=== PATIENT | female | born 1955 | race Caucasian/White ===

== ENCOUNTER 2024-04-24 08:22 | Outpatient (AMB) | payer OTHER, SELFPAY ==
--- NOTE | 2024-04-24 09:31 | MHC.OFFWIV ---
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 States that she was walking around her car, and tripped on the trailer hitch, which caused her to fall forward. She was able to catch herself on her left arm, however has since had pain and swelling along left forearm. Able to move elbow and wrist without pain. Denies any other injuries from fall. Has applied some topical muscle cream at home with some mild benefit. [facility] Social History Patient Tobacco Use Status: Never used Tobacco Review of Systems Const All systems reviewed & are unremarkable except as noted in HPI and below Physical Exam Vital Signs: Last Vital Signs Temp 97.9 F 04/24/24 09:32 Pulse 60 04/24/24 09:32 BP 130/80 04/24/24 09:32 Pulse Ox 98 04/24/24 09:32 Oxygen Delivery Method Room Air 04/24/24 09:32 BMI result Body Mass Index 30.4 Const General: cooperative, healthy appearing and no acute distress HEENT Head: Yes normal to inspection Resp Effort & Inspection: normal respiratory effort Cardio Rate: regular rate Rhythm: regular rhythm Skin General skin exam: no rashes or lesions noted Neuro General: gait normal and deep tendon reflexes 2+ bilaterally Extrem Other: left forearm with mild swelling and tenderness over mid-shaft. Normal elbow and wrist ROM. Normal cap refill, peripheral pulses, movement/sensation. No edema. Psych Appearance: grossly normal Mental Status: mental status grossly normal Speech and movement: Normal speech and movement present Assessment & Plan Assessment & Plan (1) Status post fall: Code(s): Z91.81 - History of falling Plan: XR of left forearm done in the office today and appears normal w/o fracture or disclocation. Reviewed this with patient in the office. Advised conservative measures for injury, including NSAIDs, ice, compression. JASEN wrap applied in the office. Short course of Meloxicam prescribed. Reviewed with patient indications, use, possible side effects of medication. Provided her with some ice packs. Advised her to elevate arm intermittently throughout the day. If symptoms do not improve with time and conservative measures, or certainly if symptoms worsen/new symptoms develop, she can return to the clinic for further evaluation. She verbalizes understanding and agrees to plan. (2) Left forearm pain: Code(s): M79.632 - Pain in left forearm Plan: As above. Orders: Orders XR forearm LT 2V Today M79.632 - Pain in left forearm, Z91.81 - History of falling Medications: New meloxicam 15 mg PO DAILY 7 days 7 tabs 0RF M79.632 - Pain in left forearm, Z91.81 - History of falling Coding Level of Care Code Est Pt Level 4 (95439) Diagnoses Status post fall Z91.81 Left forearm pain M79.632
[2024-04-24 09:32] VITALS: BP 130/80; PULSE 60; TEMP 36.6; O2SAT 98; BMI 30.4
== END 2024-04-24 10:33 | disposition home or self-care (01) ==
PROVIDERS: PCP Internal Medicine; Visit Provider Nurse Practitioner Family
DX: Z91.81 History of falling (principal); M79.632 Pain in left forearm
CPT/HCPCS: 99214

== ENCOUNTER 2024-04-24 10:12 | Outpatient (REF) | payer OTHER, SELFPAY ==
--- NOTE | ~2024-04-24 | XR_ITS ---
EXAMINATION: XR FOREARM, LEFT CLINICAL INFORMATION: Pain in left forearm COMPARISON: None available. TECHNIQUE: AP and lateral views of the left forearm were obtained. FINDINGS: The bones and soft tissues are normal. No fracture. Imaged portions of the elbow and wrist are unremarkable. XR/XR forearm LT 2V IMPRESSION: Normal left forearm.
== END 2024-04-24 10:13 | disposition home or self-care (01) ==
LOC: HO.HMGCX 10:12
PROVIDERS: PCP Internal Medicine; Visit Provider Nurse Practitioner Family
DX: M79.632 Pain in left forearm (principal); Z91.81 History of falling
CPT/HCPCS: 73090

== ENCOUNTER 2025-01-27 08:02 | Outpatient (AMB) | payer OTHER, SELFPAY ==
--- OUTSIDE RECORDS SUMMARY | 2025-01-27 08:06 | XMS_ITS | Clinical Summary ---
Author Organization [facility] [address] [place] [address] [place] [address] [place] [phone] Phone Care Team Providers Care Lip Cutter And Scorer Name Role Phone Yani Tripp MD Primary Care Provider [phone] Allergies Active Allergy Reactions Criticality Noted Date Comments Cat Dander 11/23/2011 Dog Dander 11/23/2011 Mold 11/23/2011 Yeast 11/23/2011 Medications ibuprofen (ADVIL,MOTRIN) 600 mg tablet Take 1 Tablet by mouth every 6 hours as needed for Pain. 03/30/2024 Active hydrOXYzine HCL (ATARAX) 25 mg tabletIndicatio ns:Anxiety and depression,Othe r insomnia Take 0.5-1 tablets (12.5-25 mg total) by mouth 3 (three) times a day. 90 tablet 11/16/2024 Active traZODone (DESYREL) 100 mg tabletIndicatio ns:Anxiety and depression,Othe r insomnia Take 1 tablet (100 mg total) by mouth 3 (three) times a day. 90 tablet 1 11/16/2024 Active citalopram (CeleXA) 20 mg tabletIndicatio ns:Anxiety and depression Take 1 tablet (20 mg total) by mouth 1 (one) time each day. 90 tablet 1 11/16/2024 Active Active Problems Problem Noted Date Diagnosed Date Pre-diabetes 06/20/2020 Vitamin D deficiency 06/20/2020 Hyperlipidemia 06/19/2020 Assessment & Plan (11/17/2024 7:46 AM EST): Last LDL 146. cardiovascular risk and specific lipid/LDL goals reiterated. I will recheck Lipid profile today. If still elevated I will discuss starting a statin. Orders: Lipid panel with reflex to direct LDL; Future Hemoglobin A1c; Future Thyroid stimulating hormone with reflex to free t4 and free t3; Future Obesity (BMI 30-39.9) 05/21/2018 Neck pain 12/28/2016 Mammographic microcalcification 03/04/2014 Allergic rhinitis 11/23/2011 Cough 11/23/2011 Hernia, umbilical 08/15/2010 Anxiety and depression 05/11/2009 Assessment & Plan (11/18/2024 6:47 PM EST): Patient does wish to continue pharmacological treatment for depressive mood and anxiety at this time. I will Continue antidepressant, Celexa 20 mg daily and hydroxyzine 12.5-25 mg 3 times daily as needed. I discussed the adverse effects of this medication with the patient including sexual dysfunction and suicidal ideation. Patient understands the adverse effects. Patient is on 3 medications that can possibly prolong Qtc (hydroxyzine, trazodone and Celexa). No EKG on file. I order EKG to check QTc today. QTC was not prolong. Therefore, I will continue current medication. EKG also reviewed with PCP. At this point, suicidal ideation does not appear to be a concern, therefore hospitalization will not be necessary and this patient may be treated on an outpatient basis. The patient was instructed to call immediately should the patient experience thoughts of suicide. Patient was advised to call immediately should depression symptoms worsen or should the patient experience suicidal ideation. Patient was asked to follow up in 2 month to gauge response to medications for depression. Orders: hydrOXYzine HCL (ATARAX) 25 mg tablet; Take 0.5-1 tablets (12.5-25 mg total) by mouth 3 (three) times a day. traZODone (DESYREL) 100 mg tablet; Take 1 tablet (100 mg total) by mouth 3 (three) times a day. citalopram (CeleXA) 20 mg tablet; Take 1 tablet (20 mg total) by mouth 1 (one) time each day. Thyroid stimulating hormone with reflex to free t4 and free t3; Future ECG 12 lead; Future Insomnia 10/22/2008 Assessment & Plan (11/17/2024 7:46 AM EST): Patient has difficulty with staying asleep. She has been taking trazodone which she reports is somewhat helpful. Patient is to continue trazodone 100 mg, at bedtime Orders: hydrOXYzine HCL (ATARAX) 25 mg tablet; Take 0.5-1 tablets (12.5-25 mg total) by mouth 3 (three) times a day. traZODone (DESYREL) 100 mg tablet; Take 1 tablet (100 mg total) by mouth 3 (three) times a day. Thyroid stimulating hormone with reflex to free t4 and free t3; Future Migraine without aura 10/03/2006 Overview (10/28/2024): IMO update Encounters Date Type Department Care Team Description 11/20/2024 2:20 PM EST - 11/20/2024 11:59 PM EST Hospital Encounter Radiology Department - [address] [phone] Abnormal mammogram Discharge Disposition: Home or Self Care 11/18/2024 8:17 AM EST - 11/18/2024 11:59 PM EST Hospital Encounter Radiology Department - [address] [phone] Encounter for screening mammogram for breast cancer Discharge Disposition: Home or Self Care 11/18/2024 Telephone Adult Medicine [address] [phone] Yani Tripp MD 11/16/2024 3:00 PM EST Office Visit Adult Medicine [address] [phone] Rosana Blanton NP Anxiety and depression (Primary Dx); Other insomnia; Prediabetes; Pure hypercholesterolemia; Encounter for screening for cardiovascular disorders; Screening for malignant neoplasm of colon; Need for tetanus, diphtheria, and acellular pertussis (Tdap) vaccine from Last 3 Months Immunizations Name Administration Dates Next Due Tdap Tetanus diptheria acell ular pertussis (Boostrix; Adacel) 7yo and older 11/16/2024,02/21/2007 Surgical History Surgery Date Site/Laterality Comments OTHER SURGICAL HISTORY PROCEDURE: CT LIG/TRNSXJ FLP TUBE ABDL/VAG APPR UNI/BI BREAST BIOPSY 2006, 2013 Left PROCEDURE: BX BREAST; PERC NEEDLE CORE W/IMAG GUID; COMMENT: x2 bx neg Medical History Medical History Date Comments Headache(784.0) DX:Headache(784. 0) Depression 05/11/2009 DX:Depression Obesity (BMI 30-39.9) 05/21/2018 DX:Obesity (BMI 30-39.9) Pre-diabetes DX:Pre-diabetes Hyperlipidemia DX:Hyperlipidemi a Anxiety DX:Anxiety Family History Medical History Relation Name Comments Diabetes Brother Diabetes Father Other: PVD Father Other: arthritis Father Diabetes Mother Hypertension Mother stroke living Other: GERD Mother Breast cancer Neg Hx Relation Name Status Comments Brother Father Mother Social History Tobacco Use Types Packs/Day Years Used Date Smoking Tobacco: Never Smokeless Tobacco: Never Tobacco Cessation:Counseling Given: Not Answered Alcohol Use Standard Drinks/Week Comments Yes 0 (1 standard drink = 0.6 oz pur e alcohol) Comments No Sex and Gender Information Value Date Recorded Sex Assigned at Not on file Legal Sex Female 10:41 AM EST Gender Identity Not on file Sexual Orientation Not on file Obstetrics History Para Term AB IAB SAB Ectopic Multiple Livin g Live Births 2 2 2 2 Date Outcome GA Total Labor Labor/2nd/3rd Weight Sex Type Anes PTL Ketty A1 A5 Name Clin Term Term Last Filed Vital Signs Vital Sign Reading Time Taken Comments Blood Pressure 138/63 11/16/2024 2:51 PM EST Pulse 63 11/16/2024 2:51 PM EST Temperature 36.9 ??C (98.5 ??F) 11/16/2024 2:51 PM ES T Respiratory Rate 16 11/16/2024 2:51 PM EST Oxygen Saturation - - Inhaled Oxygen Concentration - - Weight 92.5 kg (204 lb) 11/16/2024 2:51 PM EST Height 170.2 cm (5' 7 ) 11/16/2024 2:51 PM EST Body Mass Index 31.95 11/16/2024 2:51 PM EST Plan of Treatment Upcoming Encounters Date Type Department Care Team (Late st Contact Info) Description 05/06/2025 9:20 AM EDT Appointment Radiology Department [address] [phone] 05/31/2025 1:00 PM EDT Office Visit Adult Medicine [facility] [place] [address] [phone] Yani Tripp MD [address], [place] Health Maintenance Due Date Last Done Comments Colorectal Cancer Screening: Stool Based Tests (FOBT/FIT) 09/29/2022 Social Influencers of Health Screening 09/29/2022 Depression Screening 11/16/2025 11/16/2024 Falls Risk Assessment 11/16/2025 11/16/2024 Breast Cancer Screening 11/20/2026 11/20/19, 11/18/2024, 11/11/2023, Additional history exists RSV Immunization Adult Patients (1 - 1-dose 75+ series) 2028 Cholesterol Screening (Lipid Panel) 11/18/2029 11/18/2024, 01/10/2023 Osteoporosis Screening (Bone Density Screening) 01/26/2032 01/25/2022 DTaP,Tdap,and Td Vaccines (3 - Td or Tdap) 11/16/2034 11/16/2024, 02/21/2007 Hepatitis C Screening Completed 01/16/2019 COVID-19 Vaccine Discontinued 02/07/2021, 01/15/2021 HIB Vaccines Aged Out No longer eligi ble based on patient's age to complete this topic HPV Vaccines Aged Out No longer eligi ble based on patient's age to complete this topic Hepatitis A Vaccines Aged Out No long er eligible based on patient's age to complete this topic Hepatitis B Vaccines Aged Out No long er eligible based on patient's age to complete this topic IPV Vaccines Aged Out No longer eligi ble based on patient's age to complete this topic Influenza Vaccine Discontinued MMR Vaccines Aged Out No longer eligi ble based on patient's age to complete this topic Meningococcal ACWY Vaccine Aged Out N o longer eligible based on patient's age to complete this topic Meningococcal B Vaccine Aged Out No l onger eligible based on patient's age to complete this topic Pneumococcal Vaccine: 50+ Years Discontinued RSV Immunization Patients Under 20 months Aged Out No longer eligible based on patient's age to complete this topic Varicella Vaccines Aged Out No longer eligible based on patient's age to complete this topic Zoster Vaccines Discontinued Procedures Procedure Name Priority Date/Time Associated Diagnosis Comments MG MAMMO DIAGNOSTIC ADDL VIEWS LEFT Routine 11/20/2024 2:33 PM EST Abnormal mammogram LIPID PANEL WITH REFLEX TO DIRECT LDL Routine 11/18/2024 8:35 AM EST Prediabetes Pure hypercholesterolemia Encounter for screening for cardiovascular disorders BASIC METABOLIC PANEL Routine 11/18/2024 8:35 AM EST Prediabetes HEMOGLOBIN A1C Routine 11/18/2024 8:35 AM EST Prediabetes Pure hypercholesterolemia Encounter for screening for cardiovascular disorders THYROID STIMULATING HORMONE WITH REFLEX TO FREE T4 AND FREE T3 Routine 11/18/2024 8:35 AM EST Anxiety and depression Other insomnia Prediabetes Pure hypercholesterolemia Encounter for screening for cardiovascular disorders MG MAMMO DIGITAL SCREENING W DEONTE BILAT Routine 11/18/2024 8:29 AM EST Encounter for screening mammogram for breast cancer DXA BONE DENSITY STUDY 1+ SITS AXIAL SKEL Routine 01/25/2022 10:04 AM EDT Encounter for general adult medical examination without abnormal findings HEPATITIS C SCREENING Routine 01/16/2019 from Last 3 Months or Most Recently Relevant to Health Maintenance Results * MG Mammo Diagnostic Addl Views Left (11/20/2024 2:33 PM EST) Anatomical Region Laterality Modality Breast Left Mammography 11/20/2024 2:40 PM EST Impressions 11/20/2024 2:48 PM EST Probably benign. ??Magnification views of the right breast in 6 months are recommended and have been scheduled.. ? BI-RADS CATEGORY: 3 - PROBABLY BENIGN RECOMMENDATION: Short Interval Follow-up is recommended for the left breast in 6 months. Mammo Location: [facility], [address] [place] [address], [id number], . -------- FINAL REPORT -------- Dictated By: Tegan Gutierrez Dictated Date: 11/20/2024 14:40 ET Assigned Physician: Tegan Gutierrez Reviewed and Electronically Signed By: Tegan Guiterrez Signed Date: 11/20/2024 14:48 ET Workstation ID: [id number] Transcribed By: Self Edit Transcribed Date: 11/20/2024 14:40 ET Narrative 11/20/2024 2:48 PM EST CLINICAL: 69 years old, Female, calcifications upper outer left breast on screening mammogram of 11/11/2023. COMPARISON: Mammograms dating back to 10/30/2021 with most recent 11/11/2023. ?? FINDINGS: MAMMOGRAPHY TECHNIQUE: Magnification views of the left breast in the CC, MLO and ML projections are obtained. There is a cluster of probably benign microcalcifications in the upper outer left breast. ??There are other similar-appearing calcifications in both breasts. BREAST DENSITY: B - There are scattered areas of fibroglandular density. Procedure Note Tegan Gutierrez MD - 11/20/2024 CLINICAL: 69 years old, Female, calcifications upper outer left breast onscreening mammogram of 11/11/2023. COMPARISON: Mammograms dating back to 10/30/2021 with most [id number]/11/2023. FINDINGS: MAMMOGRAPHY TECHNIQUE: Magnification views of the left breast in the CC, MLO and MLprojections are obtained. There is a cluster of probably benign microcalcifications in the upperouter left breast. There are other similar-appearing calcifications inboth breasts. BREAST DENSITY: B - There are scattered areas of fibroglandular density. IMPRESSION: Probably benign. Magnification views of the right breast in 6 months arerecommended and have been scheduled.. BI-RADS CATEGORY: 3 - PROBABLY BENIGN RECOMMENDATION: Short Interval Follow-up is recommended for the left breast in 6 months. Mammo Location: [facility], [address] [place] [address], [address], . -------- FINAL REPORT -------- Dictated By: Tegan Gutierrez Dictated Date: 11/20/2024 14:40 ET Assigned Physician: Tegan Gutierrez Reviewed and Electronically Signed By: Tegan Gutierrez Signed Date: 11/20/2024 14:48 ET Workstation ID: [id number] Transcribed By: Self Edit Transcribed Date: 11/20/2024 14:40 ET us Yani Tripp MD IMG BI PROCEDURES Final Result * Thyroid stimulating hormone with reflex to free t4 and free t3 (11/18/2024 8:35 AM EST) TSH 4.00 0.40 - 4.00 mcIU/mL LAB CHEMISTRY METHOD 11/18/2024 11:24 AM EST [facility] Blood Venous blood specimen / Unknown Venipuncture / Unknown 11/18/2024 8:35 AM EST 11/18/2024 8:35 AM EST Rosana Blanton TRUSS DESIGNER LAB BLOOD ORDERABLES Final R esult [facility] [address] [place] [address], * (ABNORMAL) Lipid panel with reflex to direct LDL (11/18/2024 8:35 AM EST) Cholesterol 233(H) 0 - 200 mg/dL LAB CHEMISTRY METHOD 11/18/2024 11:25 AM EST [facility] Triglycerides 86 0 - 150 mg/dL LAB CHEMISTRY METHOD 11/18/2024 11:25 AM EST [facility] HDL 65 >=40 mg/dL LAB CHEMISTRY METHOD 11/18/2024 11:25 AM EST [facility] LDL Calculated 151(H) 0 - 100 mg/dL LAB CHEMISTRY METHOD 11/18/2024 11:25 AM EST [facility] VLDL Cholesterol Joss 17.2 mg/dL LAB CHEMISTRY METHOD 11/18/2024 11:25 AM EST [facility] Non HDL Chol. (LDL+VLDL) 168(H) <145 mg/dL LAB CHEMISTRY METHOD 11/18/2024 11:25 AM EST [facility] Chol/HDL Ratio 3.6 0.0 - 4.4 LAB CHEMISTRY METHOD 11/18/2024 11:25 AM EST [facility] Blood Venous blood specimen / Unknown Venipuncture / Unknown 11/18/2024 8:35 AM EST 11/18/2024 8:35 AM EST Rosana Blanton [employer]USS DESIGNER LAB BLOOD ORDERABLES Final R esult Performing Organization Address City/[facility]/ZIP Co de Phone Number [facility] [address] [place] [address], [place] [phone] * Hemoglobin A1c (11/18/2024 8:35 AM EST) Pathologist [facility] Hemoglobin A1C 6.4 <6.5 % LAB CHEMISTRY METHOD 11/18/2024 11:22 AM EST [facility] Mean Bld Glu Estim. 137 mg/dL LAB CHEMISTRY METHOD 11/18/2024 11:22 AM EST [facility] Blood Venous blood specimen / Unknown Venipuncture / Unknown 11/18/2024 8:35 AM EST 11/18/2024 8:35 AM EST Rosana Blanton [employer]USS DESIGNER LAB BLOOD ORDERABLES Final R esult Performing Organization Address City/[facility]/ZIP Co de Phone Number [facility] [address] [place] [address], [place] [phone] * (ABNORMAL) Basic metabolic panel (11/18/2024 8:35 AM EST) Sodium 136 133 - 145 mmol/L LAB CHEMISTRY METHOD 11/18/2024 11:25 AM EST [facility] Potassium 4.5 3.5 - 5.5 mmol/L LAB CHEMISTRY METHOD 11/18/2024 11:25 AM [facility] Chloride 103 96 - 110 mmol/L LAB CHEMISTRY METHOD 11/18/2024 11:25 AM [facility] CO2 28 21 - 32 mmol/L LAB CHEMISTRY METHOD 11/18/2024 11:25 AM [facility] Anion Gap 5 3 - 11 LAB CHEMISTRY METHOD 11/18/2024 11:25 AM [facility] Glucose 126(H) 70 - 100 mg/dL LAB CHEMISTRY METHOD 11/18/2024 11:25 AM [facility] BUN 18 5 - 25 mg/dL LAB CHEMISTRY METHOD 11/18/2024 11:25 AM [facility] Creatinine 0.91 0.50 - 1.10 mg/dL LAB CHEMISTRY METHOD 11/18/2024 11:25 AM [facility] eGFR 68 >=60 mL/min/1. 73m2 LAB CHEMISTRY METHOD 11/18/2024 11:25 AM [facility] Comment:Calculation based on the??Chronic Kidney Disease Epidemiology Collaboration (CKD-EPI) equation refit??without adjustment for race. BUN/Creatinine Ratio 19.8 LAB CHEMISTRY METHOD 11/18/2024 11:25 AM [facility] Calcium 10.1 8.5 - 10.5 mg/dL LAB CHEMISTRY METHOD 11/18/2024 11:25 AM [facility] Blood Venous blood specimen / Unknown Venipuncture / Unknown 11/18/2024 8:35 AM EST 11/18/2024 8:35 AM EST us Rosana Blanton NP LAB BLOOD ORDERABLES Final R esult [facility] [address] [place] [address], [place] [phone] * (ABNORMAL) MG Mammo Digital Screening w Deonte bilat (11/18/2024 8:29 AM EST) Anatomical Region Laterality Modality Breast Bilateral Mammography 11/18/2024 4:54 PM EST Impressions 11/18/2024 5:02 PM EST Microcalcifications in the left upper outer breast. ??Additional imaging is recommended. ??We will contact the patient for the arrangements. BI-RADS CATEGORY: 0 - INCOMPLETE - NEED ADDITIONAL IMAGING EVALUATION RECOMMENDATION: Additional left breast imaging recommended. Mammo Location: [facility], [address] [place] [address], [id number], . -------- FINAL REPORT -------- Dictated By: Uzma Johnson Dictated Date: 11/18/2024 16:54 ET Assigned Physician: Uzma Johnson Reviewed and Electronically Signed By: Uzma Johnson Signed Date: 11/18/2024 17:02 ET Workstation ID: [id number] Transcribed By: Self Edit Transcribed Date: 11/18/2024 16:54 ET Narrative 11/18/2024 5:02 PM EST Bilateral screening mammogram. CLINICAL: 69 years old, Female, routine annual exam. COMPARISON: Prior mammograms, latest from 11/11/2023. ?? TECHNIQUE: Bilateral MLO and CC views were obtained digitally with 2-D C views and 3-D mammogram (digital breast tomosynthesis). Computer-aided detection was utilized in evaluation of this exam (CAD). FINDINGS: There is a grouping of microcalcifications in the left upper outer breast. There is no evidence of suspicious mass or architectural distortion. ?? BREAST DENSITY: B - There are scattered areas of fibroglandular density. Procedure Note Uzma Johnson MD - 11/18/2024 Bilateral screening mammogram. CLINICAL: 69 years old, Female, routine annual exam. COMPARISON: Prior mammograms, latest from 11/11/2023. TECHNIQUE: Bilateral MLO and CC views were obtained digitally with 2-D Cviews and 3-D mammogram (digital breast tomosynthesis). Computer-aideddetection was utilized in evaluation of this exam (CAD). FINDINGS: There is a grouping of microcalcifications in the left upper outerbreast. There is no evidence of suspicious mass or architectural distortion. BREAST DENSITY: B - There are scattered areas of fibroglandular density. IMPRESSION: Microcalcifications in the left upper outer breast. Additional imaging isrecommended. We will contact the patient for the arrangements. BI-RADS CATEGORY: 0 - INCOMPLETE - NEED ADDITIONAL IMAGING EVALUATION RECOMMENDATION: Additional left breast imaging recommended. Mammo Location: [facility], [address] [place] [address], [address], . -------- FINAL REPORT -------- Dictated By: Uzma Johnson Dictated Date: 11/18/2024 16:54 ET Assigned Physician: Uzma Johnson Reviewed and Electronically Signed By: Uzma Johnson Signed Date: 11/18/2024 17:02 ET Workstation ID: [id number] Transcribed By: Self Edit Transcribed Date: 11/18/2024 16:54 ET Yani Tripp MD IM BI PROCEDURES Final Result * DXA BONE DENSITY STUDY 1+ SITS AXIAL SKEL (01/25/2022 10:04 AM EDT) Anatomical Region Laterality Modality Bone Densitometr y 11/13/2021 11:5 3 AM EST Narrative 01/26/2022 10:01 AM EDT BONE DENSITY ? Lumbar Spine T-score is -1.5 ?? (SD relative to 20-29 y/o adult) Z-score is +0.5 ??(SD relative to age matched peers) This is consistent with osteopenia by criteria defined by the WHO. Left Hip T-score is -2.5 Z-score is -0.7 This is consistent with osteoporosis by criteria defined by the WHO. Impression: Based on the World Health Organization criteria, Luciana Sol should be classified as having osteoporosis. The [facility] Department of Internal Medicine recommends using National Osteoporosis Foundation (NOF) guidelines in treatment decisions related to osteoporosis. NOF guidelines suggest considering treatment for postmenopausal women and men aged 50 or older presenting with the following: History of hip or vertebral fracture. T-score less than or equal to -2.5 (DXA) at the femoral neck, total hip, or spine, after appropriate evaluation to exclude secondary causes. Low bone mass (T-score between -1.0 and -2.5 at the femoral neck or spine) AND a 10-year probability of a hip fracture greater than or equal to 3% OR a 10-year probability of a major osteoporosis-related fracture greater than or equal to 20% based on the [place]-adapted WHO algorithm Please note that all treatment decisions require clinical judgment and consideration of individual patient factors, including patient preferences, co-morbidities, previous drug use, risk factors not captured in the FRAX model (e.g., frailty, falls, vitamin D deficiency, increased bone turnover, interval significant decline in bone density) and possible under- or over-estimation of fracture risk by FRAX. Procedure Note Uzma Johnson MD - 10/09/2022 BONE DENSITY Lumbar Spine T-score is -1.5 (SD relative to 20-29 y/o adult) Z-score is +0.5 (SD relative to age matched peers) This is consistent with osteopenia by criteria defined by the WHO. Left Hip T-score is -2.5 Z-score is -0.7 This is consistent with osteoporosis by criteria defined by the WHO. Impression: Based on the World Health Organization criteria, Luciana Sol should beclassified as having osteoporosis. The [facility] Department of Internal Medicine recommendsusing National Osteoporosis Foundation (NOF) guidelines in treatmentdecisions related to osteoporosis. NOF guidelines suggest consideringtreatment for postmenopausal women and men aged 50 or older presentingwith the following: History of hip or vertebral fracture. T-score less than or equal to -2.5 (DXA) at the femoral neck, total hip,or spine, after appropriate evaluation to exclude secondary causes. Low bone mass (T-score between -1.0 and -2.5 at the femoral neck or spine)AND a 10-year probability of a hip fracture greater than or equal to 3% ORa 10-year probability of a major osteoporosis-related fracture greaterthan or equal to 20% based on the [place]-adapted WHO algorithm Please note that all treatment decisions require clinical judgment andconsideration of individual patient factors, including patientpreferences, co-morbidities, previous drug use, risk factors not capturedin the FRAX model (e.g., frailty, falls, vitamin D deficiency, increasedbone turnover, interval significant decline in bone density) and possibleunder- or over-estimation of fracture risk by FRAX. Radha Jaime GLAZIER ARTIST IMG DXA PROCEDURES Final Result * Hepatitis C Screening (01/16/2019) [facility] Hepatitis C Screening abstracted Historical Provider HEALTH MAINTENANCE Final Result from Last 3 Months or Most Recently Relevant to Health Maintenance Insurance [employer] Care Teams Lip Cutter And Scorer Relationship Specialty Start Date End Date Yani Tripp MD [address] [place] [address] PCP - General 02/23/00
[2025-01-27 08:12] VITALS: BP 120/80; PULSE 68; TEMP 36.6; O2SAT 96
--- NOTE | 2025-01-27 08:12 | AM.OFFWIN_ITS ---
Intake Vital Signs 01/27/25 08:12 Weight 205 lb BP 120/80 Blood Pressure Location Rt brachial Position Sitting Pulse 68 Pulse Source Pulse Oximeter Temp 98 F Temp Source Oral Pulse Oximetry (%) 96 Oxygen Delivery Method Room Air Intake Visit Reasons: EP Cold symptoms Intake Note: Patient here for cough, congestion and headaches that has been present for about 2 weeks now. Patient Tobacco Use Status: Never used Tobacco Allergies No Known Allergies Allergy (Verified 01/27/25 08:14) Do you need a note to return to daycare/school/sports/work: No HPI HPI Comments History of Present Illness Details History - The patient is a 69-year-old female pr esenting with symptoms of persistent cough and possible allergic rhinitis. - Symptoms initiated approximately two a nd a half weeks ago, starting with a sore throat followed by persistent cough and runny nose. - The cough has persisted despite the us e of Tylenol and myaj-vag-nsvffke cold/flu medications. - The patient denies febrile episodes bu t experiences nocturnal warmth without measured fever. - There is a family history-related stre ss factor coinciding with her symptom onset. - She has previous use of hydroxyzine, p redominantly for its sedative and anxiolytic effects, also acknowledging its applicability for allergies. Physical Exam General: Cooperative, healthy appearing, comfortable and no acute distress Orientation/consciousness: Patient oriented x3 Limitations: No limitations Head: Normal to inspection Ears: Hearing grossly normal bilaterally, external ears normal and TM's normal bilaterally Nose: Normal external nose present, Normal nares present and No nasal discharge present Face and sinus: Normal facial exam and Yes sinuses nontender Mouth: Normal oral and palatal mucosa present and moist mucous membranes Throat: Yes tonsils normal, Yes uvula midline. Posterior oropharynx cobblestone appearance Eyes: Appearance normal, both eyes and all related structures Neck: Normal visual inspection Respiratory: Clear to auscultation bilaterally. Normal respiratory effort, able to speak in complete sentences, Actively coughing, no respiratory distress, not tachypneic, no tripod positioning and no use of accessory muscles Cardiovascular: Regular rate and rhythm. Normal S1 and S2 Skin: No rashes or lesions noted Neuro: Patient oriented x3 Extremities: Normal to inspection and Yes no clubbing, cyanosis or edema PFSH Social History Patient Tobacco Use Status: Never used Tobacco Review of Systems Const All systems reviewed & are unremarkable except as noted in HPI and below Physical Exam Vital Signs: Last Vital Signs Temp 98 F 01/27/25 08:12 Pulse 68 01/27/25 08:12 BP 120/80 01/27/25 08:12 Pulse Ox 96 01/27/25 08:12 Oxygen Delivery Method Room Air 01/27/25 08:12 Assessment & Plan Assessment & Plan (1) Seasonal allergies: Code(s): J30.2 - Other seasonal allergic rhinitis Plan: VSS, pt well appearing and PE remarkable for cobblestoning in posterior oropharynx. A treatment regimen targeting allergic rhinitis and potential bacterial infection due to persistent symptoms was discussed. Initiation of a daily allergy medication is recommended to manage symptoms, as the examination indicated an allergic component. Hydroxyzine can be used at night to assist with allergy (and anxiety) symptoms. Should there be no resolution with allergy treatment, a Z-Idris is prepared for possible bacterial infection intervention, available after an initial 3 day trial of the allergy medication. The patient's adherence to this plan and reaction to treatment will guide further action. The strategy aims to alleviate the presenting persistent cough within the context of allergic response and possible infection. Patient was informed and verbally consented to the use of an ambient scribe for clinic note documentation during this visit (2) URI, acute: Code(s): J06.9 - Acute upper respiratory infection, unspecified Plan: as above Medications: New azithromycin For 250 mg dose pack: take 500 mg today (day 1), then 250 mg for 4 days (days 2-5) orally; 6 tabs 0RF Coding Level of Care Code New Pt Level 3 (93127) Diagnoses Seasonal allergies J30.2 URI, acute J06.9
== END 2025-01-27 08:39 | disposition home or self-care (01) ==
PROVIDERS: PCP Internal Medicine; Visit Provider Physician Assistant
DX: J30.2 Other seasonal allergic rhinitis (principal); J06.9 Acute upper respiratory infection, unspecified

== ENCOUNTER → 2025-01-27 08:02 | Outpatient (BNVA) | payer OTHER, SELFPAY | PROVIDERS: PCP Internal Medicine; Visit Provider Physician Assistant ==

== ENCOUNTER 2025-02-05 08:01 | Outpatient (AMB) | payer OTHER, SELFPAY ==
[2025-02-05 08:23] VITALS: BP 128/72; PULSE 65; RESP 16; TEMP 36.7; O2SAT 98; BMI 32.3
--- NOTE | 2025-02-05 08:23 | AM.OFFWIN_ITS ---
Intake Vital Signs 02/05/25 08:23 Height 5 ft 7 in Weight 206 lb BMI 32.3 BP 128/72 Blood Pressure Location Rt brachial Position Sitting Respiration 16 Pulse 65 Pulse Source Pulse Oximeter Temp 98.1 F Temp Source Oral Pulse Oximetry (%) 98 Intake Visit Reasons: EP cold symptoms Intake Note: Pt is here today c/o cough and dry hives Patient Tobacco Use Status: Never used Tobacco Allergies No Known Allergies Allergy (Verified 02/05/25 08:26) HPI HPI Comments History of Present Illness Details 69 y/o Female patient who presents to [facility] walk in clinic with c/o Persistent Dry Cough for few weeks now. She was last seen here 01/25 and she was prescribed Z-pack and told to take Allergy Medication. Reports no improvement. Denies SOB, wheezing, CP, Chills or fevers. PFSH Medical History (Updated 02/05/25 @ 08:35 by Angelic Wan NP) Cough Social History Patient Tobacco Use Status: Never used Tobacco Review of Systems Const All systems reviewed & are unremarkable except as noted in HPI and below Physical Exam Vital Signs: Last Vital Signs Temp 98.1 F 02/05/25 08:23 Pulse 65 02/05/25 08:23 Resp 16 02/05/25 08:23 BP 128/72 02/05/25 08:23 Pulse Ox 98 02/05/25 08:23 BMI result Body Mass Index 32.3 Const General: no acute distress Nutritional Appearance: obese Orientation/consciousness: patient oriented x3 Resp Effort & Inspection: normal respiratory effort and able to speak in complete se ntences Auscultation: clear to auscultation bilaterally, no crackles, no rales, no rhonchi and no wheezes Cardio Rhythm: regular rhythm Heart sounds: S1 normal heart sound present and S2 normal heart sound present Neuro General: patient oriented x3 Assessment & Plan Assessment & Plan (1) Cough: Code(s): R05.9 - Cough, unspecified Qualifiers: Cough type: subacute Qualified Code(s): R05.2 - Subacute cough Plan: Ordered Chest Xray OTC Cough remedies Warm fluids with Honey Continue taking Allergy medication. Orders: Orders XR chest 2V Today R05.2 - Subacute cough Coding Level of Care Code Est Pt Level 4 (56069) Diagnoses Subacute cough R05.2 Cough type: subacute Time Spent (min) 20
== END 2025-02-05 08:48 | disposition home or self-care (01) ==
PROVIDERS: PCP Internal Medicine; Visit Provider Nurse Practitioner Family
DX: R05.2 Subacute cough (principal)

== ENCOUNTER 2025-02-05 08:01 | Outpatient (REF) | payer OTHER, SELFPAY ==
--- NOTE | ~2025-02-05 | XR_ITS ---
CLINICAL HISTORY: R05.2 - Subacute cough --- Additional Notes or Special Instructions: 69 y o Female patient with c o Persistent Dry Cough for few weeks now. 2 view chest x-ray Comparison: None Findings: No consolidation or effusion. Heart size is normal. There is a tortuous thoracic aorta. No acute fracture. IMPRESSION: 1. No acute findings. This document has been electronically signed by: Sander Wilkins MD on 02/06/2025 08:52:41
--- OUTSIDE RECORDS SUMMARY | 2025-02-05 08:55 | XMS_ITS | Clinical Summary ---
Author Organization [facility] [address] [place] [address] [place] [address] [place] [phone] Phone Care Team Providers Care Food Service Order Clerk Name Role Phone Yani Tripp MD Primary Care Provider [phone] Allergies Active Allergy Reactions Criticality Noted Date [...] PM EST Hospital Encounter Radiology Department - [address] [phone] Abnormal mammogram Discharge Disposition: Home or Self Care 11/18/2024 8:17 AM EST - 11/18/2024 11:59 PM EST Hospital Encounter Radiology Department - [address] [phone] Encounter for screening mammogram for breast cancer Discharge Disposition: Home or Self Care 11/18/2024 Telephone Adult Medicine [address] [phone] Yani Tripp MD 11/16/2024 3:00 PM EST Office Visit Adult Medicine [address] [phone] Rosana Blanton NP Anxiety and depression (Primary [...] Date Site/Laterality Comments OTHER SURGICAL HISTORY PROCEDURE: [place] LIG/TRNSXJ FLP TUBE ABDL/VAG APPR UNI/BI BREAST [...] 05/06/2025 9:20 AM EDT Appointment Radiology Department [address] [phone] 05/31/2025 1:00 PM EDT Office Visit Adult Medicine [facility] [address], [place] [phone] Yani Tripp MD [address], [place] Health Maintenance Due Date Last Done [...] left breast in 6 months. Mammo Location: [facility], [address] [place] [address], [address], . -------- FINAL REPORT -------- Dictated By: Tegan Gutierrez Dictated Date: 11/20/2024 14:40 ET Assigned Physician: Tegan Gutierrez Reviewed and Electronically Signed By: Tegan Gutierrez Signed Date: 11/20/2024 14:48 ET Workstation ID: [id number] Transcribed By: Self Edit Transcribed Date: 11/20/2024 [...] Mammograms dating back to 10/30/2021 with most [id number]/11/2023. FINDINGS: MAMMOGRAPHY TECHNIQUE: Magnification views of the [...] left breast in 6 months. Mammo Location: [facility], [address] [place] [address], [address], . -------- FINAL REPORT -------- Dictated By: Tegan Gutierrez Dictated Date: 11/20/2024 14:40 ET Assigned Physician: Tegan Gutierrez Reviewed and Electronically Signed By: Tegan Gutierrez Signed Date: 11/20/2024 14:48 ET Workstation ID: [id number] Transcribed By: Self Edit Transcribed Date: 11/20/2024 14:40 ET us Yani Tripp MD IMG BI PROCEDURES Final Result * Thyroid stimulating hormone with reflex to free t4 and free t3 (11/18/2024 8:35 AM EST) TSH 4.00 0.40 - 4.00 mcIU/mL LAB CHEMISTRY METHOD 11/18/2024 11:24 AM EST [facility] Blood Venous blood specimen / Unknown Venipuncture / Unknown 11/18/2024 8:35 AM EST 11/18/2024 8:35 AM EST Rosana Blanton IMPROVEMENT RN LAB BLOOD ORDERABLES Final R esult [facility] [address] [place] [address], * (ABNORMAL) Lipid panel with reflex to direct LDL (11/18/2024 8:35 AM EST) Cholesterol 233(H) 0 - 200 mg/dL LAB CHEMISTRY METHOD 11/18/2024 11:25 AM EST [facility] Triglycerides 86 0 - 150 mg/dL LAB CHEMISTRY METHOD 11/18/2024 11:25 AM EST [facility] HDL 65 >=40 mg/dL LAB CHEMISTRY METHOD 11/18/2024 11:25 AM EST [facility] LDL Calculated 151(H) 0 - 100 mg/dL LAB CHEMISTRY METHOD 11/18/2024 11:25 AM EST [facility] VLDL Cholesterol Joss 17.2 mg/dL LAB CHEMISTRY METHOD 11/18/2024 11:25 AM EST [facility] Non HDL Chol. (LDL+VLDL) 168(H) <145 mg/dL LAB CHEMISTRY METHOD 11/18/2024 11:25 AM EST [facility] Chol/HDL Ratio 3.6 0.0 - 4.4 LAB CHEMISTRY METHOD 11/18/2024 11:25 AM EST [facility] Blood Venous blood specimen / Unknown Venipuncture / Unknown 11/18/2024 8:35 AM EST 11/18/2024 8:35 AM EST Rosana Blanton IMPROVEMENT RN LAB BLOOD ORDERABLES Final R esult Performing Organization Address City/[facility]/ZIP Co de Phone Number [facility] [address] [place] [address], [place] [phone] * Hemoglobin A1c (11/18/2024 8:35 AM EST) Pathologist [facility] Hemoglobin A1C 6.4 <6.5 % LAB CHEMISTRY METHOD 11/18/2024 11:22 AM EST [facility] Mean Bld Glu Estim. 137 mg/dL LAB CHEMISTRY METHOD 11/18/2024 11:22 AM EST [facility] Blood Venous blood specimen / Unknown Venipuncture / Unknown 11/18/2024 8:35 AM EST 11/18/2024 8:35 AM EST Rosana Blanton IMPROVEMENT RN LAB BLOOD ORDERABLES Final R esult Performing Organization Address City/[facility]/ZIP Co de Phone Number [facility] [address] [place] [address], [place] [phone] * (ABNORMAL) Basic metabolic panel (11/18/2024 8:35 AM EST) Sodium 136 133 - 145 mmol/L LAB CHEMISTRY METHOD 11/18/2024 11:25 AM EST [facility] Potassium 4.5 3.5 - 5.5 mmol/L LAB CHEMISTRY METHOD 11/18/2024 11:25 AM [facility] Chloride 103 96 - 110 mmol/L LAB CHEMISTRY METHOD 11/18/2024 11:25 AM [facility] CO2 28 21 - 32 mmol/L LAB CHEMISTRY METHOD 11/18/2024 11:25 AM [facility] Anion Gap 5 3 - 11 LAB CHEMISTRY METHOD 11/18/2024 11:25 AM [facility] Glucose 126(H) 70 - 100 mg/dL LAB CHEMISTRY METHOD 11/18/2024 11:25 AM [facility] BUN 18 5 - 25 mg/dL LAB CHEMISTRY METHOD 11/18/2024 11:25 AM [facility] Creatinine 0.91 0.50 - 1.10 mg/dL LAB CHEMISTRY METHOD 11/18/2024 11:25 AM [facility] eGFR 68 >=60 mL/min/1. 73m2 LAB CHEMISTRY METHOD 11/18/2024 11:25 AM [facility] Comment:Calculation based on the??Chronic Kidney Disease Epidemiology Collaboration (CKD-EPI) equation refit??without adjustment for race. BUN/Creatinine Ratio 19.8 LAB CHEMISTRY METHOD 11/18/2024 11:25 AM [facility] Calcium 10.1 8.5 - 10.5 mg/dL LAB CHEMISTRY METHOD 11/18/2024 11:25 AM [facility] Blood Venous blood specimen / Unknown Venipuncture / Unknown 11/18/2024 8:35 AM EST 11/18/2024 8:35 AM EST us Rosana Blanton NP LAB BLOOD ORDERABLES Final R esult [facility] [address] [place] [address], [place] [phone] * (ABNORMAL) MG Mammo Digital Screening w [...] Additional left breast imaging recommended. Mammo Location: [facility], [address] [place] [address], [address], . -------- FINAL REPORT -------- Dictated By: Uzma Johnson Dictated Date: 11/18/2024 16:54 ET Assigned Physician: Uzma Johnson Reviewed and Electronically Signed By: Uzma Johnson Signed Date: 11/18/2024 17:02 ET Workstation ID: [id number] Transcribed By: Self Edit Transcribed Date: 11/18/2024 [...] Additional left breast imaging recommended. Mammo Location: [facility], [address] [place] [address], [address], . -------- FINAL REPORT -------- Dictated By: Uzma Johnson Dictated Date: 11/18/2024 16:54 ET Assigned Physician: Uzma Johnson Reviewed and Electronically Signed By: Uzma Johnson Signed Date: 11/18/2024 17:02 ET Workstation ID: [id number] Transcribed By: Self Edit Transcribed Date: 11/18/2024 [...] should be classified as having osteoporosis. The [facility] Department of Internal Medicine recommends using National [...] Sol should beclassified as having osteoporosis. The [facility] Department of Internal Medicine recommendsusing National Osteoporosis [...] of fracture risk by FRAX. Radha Jaime MECHANIC SOUND TECHNICIAN IMG DXA PROCEDURES Final Result * Hepatitis C Screening (01/16/2019) [facility] Hepatitis C Screening abstracted Historical Provider HEALTH MAINTENANCE Final Result from Last 3 Months or Most Recently Relevant to Health Maintenance Insurance [employer] Care Teams Food Service Order Clerk Relationship Specialty Start Date End Date Yani Tripp MD [address] [place] [address] PCP - General 02/23/00
== END 2025-02-05 08:02 | disposition home or self-care (01) ==
LOC: HO.HMGCX 08:01
PROVIDERS: PCP Internal Medicine; Visit Provider Nurse Practitioner Family
DX: R05.2 Subacute cough (principal)
CPT/HCPCS: 71046

== ENCOUNTER → 2025-02-05 08:38 | Outpatient (BNV) | payer OTHER, SELFPAY | PROVIDERS: PCP Internal Medicine; Visit Provider Specialist | DX: R05.2 Subacute cough (principal) | CPT/HCPCS: 71046 ==

== ENCOUNTER 2025-05-13 09:09 | Outpatient (REF) | payer OTHER, SELFPAY ==
--- NOTE | ~2025-05-13 | XR_ITS ---
EXAMINATION: XR KNEE, LEFT CLINICAL INFORMATION: M25.562 - Pain in left knee COMPARISON: None available. TECHNIQUE: Four views of the left knee. FINDINGS: There is no joint effusion. There is mild to moderate narrowing of the medial joint space and minimal narrowing of the lateral joint space. Small marginal osteophyte is present involving medial tibial plateau and patella. No abnormalities are evident. XR/XR knee LT 4V IMPRESSION: Mild to moderate osteoarthritis. Electronically signed by: Edgar Madden MD 05/13/2025 10:50 AM EDT
== END 2025-05-13 09:10 | disposition home or self-care (01) ==
LOC: HO.HMGCX 09:09
PROVIDERS: PCP Internal Medicine; Visit Provider Physician Assistant
DX: M25.562 Pain in left knee (principal); M54.31 Sciatica, right side; W10.8XXA Fall (on) (from) other stairs and steps, initial encounter
CPT/HCPCS: 73564

== ENCOUNTER 2025-05-13 09:09 | Outpatient (AMB) | payer OTHER, SELFPAY ==
[2025-05-13 09:34] VITALS: BP 136/80; PULSE 70; TEMP 36.9; O2SAT 97; BMI 31.8
--- NOTE | 2025-05-13 09:34 | MHC.OFFWIV ---
Intake Vital Signs 05/13/25 09:34 Height 5 ft 7 in Weight 203 lb BMI 31.8 BP 136/80 Blood Pressure Location Lt brachial Position Sitting Pulse 70 Pulse Source Pulse Oximeter Temp 98.5 F Temp Source Oral Pulse Oximetry (%) 97 Oxygen Delivery Method Room Air Intake Visit Reasons: EP-lt knee pain, rt side lower back pain Patient Tobacco Use Status: Never used Tobacco Stock Parts Fabricator Required: No Is last menstrual period known: No Post menopausal: Yes Patient : No Allergies No Known Allergies Allergy (Verified 05/13/25 09:41) Do you need a note to return to daycare/school/sports/work: No HPI HPI Comments History of Present Illness Details History - The patient is a 69-year-old female presenting with left knee pain and right-sided low back pain with sciatica. - Left knee pain: The patient reports a fall last year resulting in injury to both legs, with a subsequent fall two months ago directly impacting the left knee again. Most painful on medial side. - The knee pain is described as pins and needles with occasional locking, primarily localized to the inside of the knee. - Interventions include the use of heat and a compression bandage, which provide minimal relief. - The patient experiences sharp pain in the lower back radiating to the buttock, exacerbated by certain movements. Physical Exam General: Cooperative, healthy appearing, comfortable, no acute distress and well developed Orientation: Patient oriented x3 Limitations: No limitations Head: Normal to inspection Ears: Hearing grossly normal bilaterally Nose: Normal External nose present Face and sinus: Normal facial exam Mouth: normal, moist oral mucosa Eyes: Appearance normal, both eyes and all related structures Neck: Normal visual inspection and Yes full ROM Respiratory: Normal respiratory effort and able to speak in complete sentences. Skin: no rashes or lesions noted Neuro: Patient oriented x3, gait normal Extremities: moving all extremities normally, full ROM right knee, TTP medial right knee, and right-sided straight leg test positive PFSH Medical History (Updated 05/13/25 @ 10:22 by Em Coulter PA-C) Cough Social History Patient Tobacco Use Status: Never used Tobacco Patient : No Review of Systems Const All systems reviewed & are unremarkable except as noted in HPI and below Physical Exam Vital Signs: Last Vital Signs Temp 98.5 F 05/13/25 09:34 Pulse 70 05/13/25 09:34 BP 136/80 05/13/25 09:34 Pulse Ox 97 05/13/25 09:34 Oxygen Delivery Method Room Air 05/13/25 09:34 BMI result Body Mass Index 31.8 Assessment & Plan Assessment & Plan (1) Left medial knee pain: Code(s): M25.562 - Pain in left knee Plan: Plan Patient was informed and verbally consented to the use of an ambient scribe for clinic note documentation during this visit Left Knee Pain - Plan includes obtaining an x-ray to assess for any structural damage such as fractures or dislocations. - Prescribed prednisone 40 mg daily for five days to reduce inflammation. - Advised to avoid NSAIDs like Aleve or Motrin while on prednisone to prevent gastrointestinal complications. (2) Fall (on) (from) other stairs and steps, initial encounter: Code(s): W10.8XXA - Fall (on) (from) other stairs and steps, initial encounter Plan: as above (3) Sciatica of right side: Code(s): M54.31 - Sciatica, right side Plan: Right-Sided Low Back Pain With Sciatica - Prescribed prednisone to reduce inflammation and alleviate symptoms. - Recommended Voltaren Gel for topical application to the affected area. - Suggested sciatica stretches from reputable sources once symptoms improve. Orders: Orders XR knee LT 4V Today M25.562 - Pain in left knee, W10.8XXA - Fall (on) (from) other stairs and steps, initial encounter Medications: New prednisone 40 mg (2 x 20 mg) PO QAM 10 tabs 0RF Coding Level of Care Code New Pt Level 4 (82395) Diagnoses Left medial knee pain M25.562 Fall (on) (from) other stairs and steps, initial encounter W10.8XXA Sciatica of right side M54.31
--- OUTSIDE RECORDS SUMMARY | 2025-05-13 09:37 | XMS_ITS | Clinical Summary ---
Author Organization [facility] [address] [place] [address] [place] [address] [place] [phone] Phone Care Team Providers Care Shore Man Name Role Phone Yani Tripp MD Primary Care Provider [phone] Allergies Active Allergy Reactions Criticality Noted Date Comments Cat Dander 11/23/2011 Dog Dander 11/23/2011 Mold 11/23/2011 Yeast 11/23/2011 Medications ibuprofen (ADVIL,MOTRIN) 600 mg tablet Take 1 Tablet by mouth every 6 hours as needed for Pain. 4 Active hydrOXYzine HCL (ATARAX) 25 mg tabletIndicati ons:Anxiety and depression,Oth er insomnia Take 0.5-1 tablets (12.5-25 mg total) by mouth 3 (three) times a day. 90 tablet 5 Active citalopram (CeleXA) 20 mg tabletIndicati ons:Anxiety and depression Take 1 tablet (20 mg total) by mouth 1 (one) time each day. 90 tablet 1 5 Active traZODone (DESYREL) 100 mg tabletIndicati ons:Anxiety and depression,Oth er insomnia TAKE 1 TABLET BY MOUTH 3 TIMES A DAY. 270 tablet 1 5 Active traZODone (DESYREL) 100 mg tabletIndicati ons:Anxiety and depression,Oth er insomnia Take 1 tablet (100 mg total) by mouth 3 (three) times a day. 90 tablet 1 5 05/04/20 25 Discontinued Active Problems Problem Noted Date Diagnosed Date [...] Encounters Date Type Department Care Team Description 05/06/2025 8:54 AM EDT - 05/06/2025 11:59 PM EDT Hospital Encounter Radiology Department - [address] [phone] Abnormal mammogram Discharge Disposition: Home or Self Care from Last 3 Months Immunizations Name Administration Dates Next Due Tdap Tetanus diptheria acell ular pertussis (Boostrix; Adacel) 7yo and older 11/16/2024,02/21/2007 Surgical History Surgery Date Site/Laterality Comments OTHER SURGICAL HISTORY PROCEDURE: [place] LIG/TRNSXJ FLP TUBE ABDL/VAG APPR UNI/BI BREAST [...] 63 11/16/2024 2:51 PM EST Temperature 36.9 C (98.5 F) 11/16/2024 2:51 PM EST Respiratory Rate 16 11/16/2024 2:51 PM EST Oxygen Saturation - - Inhaled Oxygen Concentration - - Weight 92.5 kg (204 lb) 11/16/2024 2:51 PM EST Height 170.2 cm (5' 7 ) 11/16/2024 2:51 PM EST Body Mass Index 31.95 11/16/2024 2:51 PM EST Plan of Treatment Upcoming Encounters Date Type Department Care Team (Late st Contact Info) Description 05/31/2025 1:00 PM EDT Office Visit Adult Medicine [address] [phone] Yani Tripp MD [address] [place] [phone] 10/26/2025 8:30 AM EST Appointment Radiology Department - [address] [phone] Health Maintenance Due Date Last Done Comments Colorectal Cancer Screening: Stool Based Tests (FOBT/FIT) 09/29/2022 Social Influencers of Health Screening 09/29/2022 Falls Risk Assessment 11/16/2025 11/16/2024 Breast Cancer Screening 05/06/2027 05/06/20 25, 11/20/2024, 11/18/2024, Additional history exists RSV Immunization Adult Patients (1 - 1-dose 75+ series) 2028 Cholesterol Screening (Lipid Panel) 11/18/2029 11/18/2024, 01/10/2023 Osteoporosis Screening (Bone Density Screening) 01/26/2032 01/25/2022 DTaP,Tdap,and Td Vaccines (3 - Td or Tdap) 11/16/2034 11/16/2024, 02/21/2007 Hepatitis C Screening Completed 01/16/2019 COVID-19 Vaccine Discontinued 02/07/2021, 01/15/2021 Depression Screening Completed 11/16/2024 HIB Vaccines Aged Out No longer eligi [...] MG MAMMO DIAGNOSTIC ADDL VIEWS LEFT Routine 05/06/2025 9:11 AM EDT Abnormal mammogram LIPID PANEL WITH REFLEX TO DIRECT LDL Routine 11/18/2024 8:35 AM EST Prediabetes Pure hypercholesterolemia Encounter for screening for cardiovascular disorders DXA BONE DENSITY STUDY 1+ SITS AXIAL SKEL Routine 01/25/2022 10:04 AM EDT Encounter for general adult medical examination without abnormal findings HM HEPATITIS C SCREENING Routine 01/16/2019 from Last 3 Months or Most Recently Relevant to Health Maintenance Results * MG Mammo Diagnostic Addl Views Left (05/06/2025 9:11 AM EDT) Anatomical Region Laterality Modality Breast Left Mammography 05/06/2025 10:4 0 AM EDT Impressions 05/06/2025 10:43 AM EDT Stable probably benign calcifications in the upper outer left breast. Recommend continued follow-up 6 months with magnification views. BREAST DENSITY: B - There are scattered areas of fibroglandular density. BI-RADS CATEGORY: 3 - PROBABLY BENIGN RECOMMENDATION: Short Interval Follow-up is recommended for the left breast in 6 months. MAMMO LOCATION: [facility], [address] [place] [address], [phone], . -------- FINAL REPORT -------- Dictated By: Bisi Aranda Dictated Date: 05/06/2025 10:40 ET Assigned Physician: Bisi Aranda Reviewed and Electronically Signed By: Bisi Aranda Signed Date: 05/06/2025 10:43 ET Workstation ID: [id number] Transcribed By: Self Edit Transcribed Date: 05/06/2025 10:40 ET Narrative 05/06/2025 10:43 AM EDT EXAM: Unilateral left diagnostic mammogram HISTORY: Six-month follow-up of probably benign calcifications in the upper outer left breast. COMPARISON: 11/20/2024 and as far back as 10/16/2019 TECHNIQUE: Magnification ML, MLO, and CC views performed. FINDINGS: No significant interval change in a 1.3 cm area of several groups of mildly coarse and punctate calcifications in the posterior upper outer left breast. Procedure Note Bisi Aranda MD - 05/06/2025 EXAM: Unilateral left diagnostic mammogram HISTORY: Six-month follow-up of probably benign calcifications in theupper outer left breast. COMPARISON: 11/20/2024 and as far back as 10/16/2019 TECHNIQUE: Magnification ML, MLO, and CC views performed. FINDINGS: No significant interval change in a 1.3 cm area of several groups ofmildly coarse and punctate calcifications in the posterior upper outerleft breast. IMPRESSION: Stable probably benign calcifications in the upper outer left breast.Recommend continued follow-up 6 months with magnification views. BREAST DENSITY: B - There are scattered areas of fibroglandular density. BI-RADS CATEGORY: 3 - PROBABLY BENIGN RECOMMENDATION: Short Interval Follow-up is recommended for the leftbreast in 6 months. MAMMO LOCATION: [facility], [address] [place] [address], [phone], . -------- FINAL REPORT -------- Dictated By: Bisi Aranda Dictated Date: 05/06/2025 10:40 ET Assigned Physician: Bisi Aranda Reviewed and Electronically Signed By: Bisi Aranda Signed Date: 05/06/2025 10:43 ET Workstation ID: [id number] Transcribed By: Self Edit Transcribed Date: 05/06/2025 10:40 ET [facility] [facility] IM BI PROCEDURES Final Result * (ABNORMAL) Lipid panel with reflex to direct LDL (11/18/2024 8:35 AM EST) Cholesterol 233(H) 0 - 200 mg/dL LAB CHEMISTRY METHOD 11/18/2024 11:25 AM EST [facility] Triglycerides 86 0 - 150 mg/dL LAB CHEMISTRY METHOD 11/18/2024 11:25 AM EST [facility] HDL 65 >=40 mg/dL LAB CHEMISTRY METHOD 11/18/2024 11:25 AM EST [facility] LDL Calculated 151(H) 0 - 100 mg/dL LAB CHEMISTRY METHOD 11/18/2024 11:25 AM EST [facility] VLDL Cholesterol Joss 17.2 mg/dL LAB CHEMISTRY METHOD 11/18/2024 11:25 AM EST [facility] Non HDL Chol. (LDL+VLDL) 168(H) <145 mg/dL LAB CHEMISTRY METHOD 11/18/2024 11:25 AM EST [facility] Chol/HDL Ratio 3.6 0.0 - 4.4 LAB CHEMISTRY METHOD 11/18/2024 11:25 AM EST [facility] Blood Venous blood specimen / Unknown Venipuncture / Unknown 11/18/2024 8:35 AM EST 11/18/2024 8:35 AM EST us Rosana Blanton NP LAB BLOOD ORDERABLES Final R esult [facility]) [facility] [address] [place] [address], * DXA BONE DENSITY STUDY 1+ SITS AXIAL SKEL (01/25/2022 10:04 AM EDT) Anatomical Region Laterality Modality Bone Densitometr y 11/13/2021 11:5 3 AM EST Narrative 01/26/2022 10:01 AM EDT BONE DENSITY Lumbar Spine T-score is -1.5 [...] should be classified as having osteoporosis. The [facility] Department of Internal Medicine recommends using National [...] Sol should beclassified as having osteoporosis. The [facility] Department of Internal Medicine recommendsusing National Osteoporosis [...] over-estimation of fracture risk by FRAX. Radha FLOWERS IMG DXA PROCEDURES Final Result * Hepatitis C Screening (01/16/2019) [facility] Hepatitis C Screening abstracted Historical Provider MD HEALTH MAINTENANCE Final Result from Last 3 Months or Most Recently Relevant to Health Maintenance Insurance [employer] Care Teams Shore Man Relationship Specialty Start Date End Date Yani Tripp MD [address] [facility] [place] [id number] PCP - General 02/23/00
== END 2025-05-13 10:56 | disposition home or self-care (01) ==
PROVIDERS: PCP Internal Medicine; Visit Provider Physician Assistant
DX: M25.562 Pain in left knee (principal); W10.8XXA Fall (on) (from) other stairs and steps, initial encounter; M54.31 Sciatica, right side

== ENCOUNTER → 2025-05-13 10:28 | Outpatient (BNV) | payer OTHER, SELFPAY | PROVIDERS: PCP Internal Medicine; Visit Provider Radiology Diagnostic Radiology | DX: M17.12 Unilateral primary osteoarthritis, left knee (principal) | CPT/HCPCS: 73564 ==

== ENCOUNTER 2025-08-05 08:35 | Outpatient (REF) | payer OTHER, SELFPAY ==
--- NOTE | ~2025-08-05 | XR_ITS ---
EXAMINATION: XR CERVICAL SPINE CLINICAL INFORMATION: M54.2 - Cervicalgia COMPARISON: None available. TECHNIQUE: 3 views of the cervical spine were obtained. FINDINGS: Osseous mineralization appears decreased. No prevertebral soft tissue swelling. Predens space is maintained. Minimal anterolisthesis of C4 on C5. Multilevel disc degenerative changes. More prominent findings of moderate-severe C6-7 disc degeneration. Multilevel facet degeneration. No abnormal soft tissue calcification. Lung apices are clear. XR/XR cervical spine 2V IMPRESSION: No radiographic evidence of acute osseous findings. Cervical spondylosis. C6-7 moderate-severe disc degeneration. Electronically signed by: Tripp Begum MD 08/05/2025 09:45 AM EDT
--- NOTE | ~2025-08-05 | XR_ITS ---
EXAMINATION: XR SHOULDER, LEFT CLINICAL INFORMATION: M25.512 - Pain in left shoulder COMPARISON: None available. TECHNIQUE: Three views of the left shoulder. FINDINGS: No evidence of acute fracture, dislocation or suspicious bony lesion. Glenohumeral and acromioclavicular alignment is anatomic with normal joint space. No abnormal soft tissue calcifications. XR/XR shoulder LT min 2V IMPRESSION: No acute osseous findings. Electronically signed by: Tripp Begum MD 08/05/2025 09:42 AM EDT
== END 2025-08-05 08:36 | disposition home or self-care (01) ==
LOC: HO.HMGCX 08:35
PROVIDERS: PCP Internal Medicine; Visit Provider Nurse Practitioner Family
DX: M54.2 Cervicalgia (principal); M25.512 Pain in left shoulder
CPT/HCPCS: 72040; 73030

== ENCOUNTER 2025-08-05 08:35 | Outpatient (AMB) | payer OTHER, SELFPAY ==
[2025-08-05 08:57] VITALS: BP 142/80; PULSE 76; TEMP 36.6; O2SAT 98; BMI 31.3
--- NOTE | 2025-08-05 08:57 | AM.OFFWIN_ITS ---
Intake Vital Signs 3 08/05/25 08:57 Height 5 ft 7 in Weight 200 lb BMI 31.3 BP 142/80 H Blood Pressure Location Rt brachial Position Sitting Pulse 76 Pulse Source Pulse Oximeter Temp 97.8 F Temp Source Oral Pulse Oximetry (%) 98 Intake Visit Reasons: EP-neck and lt shoulder pain Patient Tobacco Use Status: Never used Tobacco Allergies No Known Allergies Allergy (Verified 08/05/25 08:58) Medication List - Last Reconciled 08/05/25 by Angelic Wan NP celecoxib (Celebrex) 100 mg PO BID 10 days citalopram 20 mg PO DAILY cyclobenzaprine 10 mg PO BEDTIME hydroxyzine HCl 12.5 - 25 mg PO TID PRN prednisone 20 mg PO DAILY trazodone 100 mg PO BEDTIME PRN Do you need a note to return to daycare/school/sports/work: No HPI HPI Comments 2 History of Present Illness0 Details 70 y/o Female patient [facility] with c/o Neck pain that radiates to the left anterior Shoulder for 2 weeks now. Denies Injury or trauma to the neck or shoulder. Denies numbness or tingling to the hands. She has been using NSAIDs, Acetaminophen, Heat, Ice and rest with no relief. Reports pain with ROM. She does have headaches with neck pain. [facility] Medical History (Updated 08/05/25 @ 09:15 by Angelic Wan NP) Left anterior shoulder pain Cervicalgia Cough Social History Patient Tobacco Use Status: Never used Tobacco Review of Systems Const All systems reviewed & are unremarkable except as noted in HPI and below Physical Exam Vital Signs: Last Vital Signs Temp 97.8 F 08/05/25 08:57 Pulse 76 08/05/25 08:57 BP 142/80 H 08/05/25 08:57 Pulse Ox 98 08/05/25 08:57 BMI result Body Mass Index 31.3 Const General: no acute distress Nutritional Appearance: obese Orientation/consciousness: patient oriented x3 Neck Other: Pain with Neck ROM. Neck: Yes no lymphadenopathy, Yes trachea midline, Yes tender and Yes no JVD Neck images: 2 1. Mild swelling anterior upper chest wall (Clavicle) ?Lipoma ?Cyst TTP. Back/Spine/Pelvis Cervical Spine: cervical muscular tenderness, pain with cervical ROM, cervical spasm and Cervical spine tenderness Neuro General: patient oriented x3, gait normal and moves all extremities Extrem Left upper extremity: shoulder/upper arm Details: tenderness Location: of the clavicle Laterality: medially, axillary nerve sensory function normal and normal ROM; no crepitus and no deformity Psych Speech and movement: Normal speech and movement present Attitude: cooperative Assessment & Plan Assessment & Plan (1) Cervicalgia: Code(s): M54.2 - Cervicalgia Plan: Ordered Cervical/Neck and shoulder Xrays. Ordered Flexeril, Celebrex and Prednisone Ice/Heat There is a small Lump/swelling area - anterior upper chest (Clavicle) ?Lipoma or ? cyst. F/U with PCP. (2) Left anterior shoulder pain: Code(s): M25.512 - Pain in left shoulder Plan: Ordered Cervical/Neck and shoulder Xrays. Ordered Flexeril, Celebrex and Prednisone Ice/Heat Normal ROM Left shoulder, no deformity. Ordered PT F/U with PCP. Orders: Orders 2 XR cervical spine 3V Today M25.512 - Pain in left shoulder, M54.2 - Cervicalgia PT Evaluation and Treatment Today M25.512 - Pain in left shoulder, M54.2 - Cervicalgia XR shoulder LT min 2V Today M25.512 - Pain in left shoulder, M54.2 - Cervicalgia Medications: New 2 celecoxib (Celebrex) 100 mg PO BID 20 caps 0RF 10 days M25.512 - Pain in left shoulder, M54.2 - Cervicalgia cyclobenzaprine 10 mg PO BEDTIME 14 tabs 0RF M25.512 - Pain in left shoulder, M54.2 - Cervicalgia prednisone 20 mg PO DAILY 10 tabs 0RF M25.512 - Pain in left shoulder, M54.2 - Cervicalgia Coding Level of Care Code Est Pt Level 4 (65736) Diagnoses Cervicalgia M54.2 Left anterior shoulder pain M25.512 Time Spent (min) 20
--- OUTSIDE RECORDS SUMMARY | 2025-08-05 09:03 | XMS_ITS | Clinical Summary ---
Author Organization [facility] [address] [place] [address] [place] [address] [place] [phone] Phone Care Team Providers Care Cash Teller Name Role Phone Yani Tripp MD Primary Care Provider Allergies Active Allergy Reactions Criticality Noted Date [...] mg tabletIndicatio ns:Anxiety and depression,Othe r insomnia TAKE 1 TABLET BY MOUTH 3 TIMES A DAY. 270 tablet 1 05/04/2025 Active citalopram (CeleXA) 20 mg tabletIndicatio ns:Anxiety and depression Take 1 tablet (20 mg total) by mouth 1 (one) time each day. 30 tablet 2 06/01/2025 Active Active Problems Problem Noted Date Diagnosed [...] Encounters Date Type Department Care Team Description 05/31/2025 1:00 PM EDT Office Visit Adult Medicine [address] [phone] Yani Tripp MD Pure hypercholesterolemia (Primary Dx); Anxiety and depression; Pre-diabetes; Left knee pain, unspecified chronicity; Obesity (BMI 30-39.9) 05/06/2025 8:54 AM EDT - 05/06/2025 11:59 PM EDT Hospital Encounter Radiology Department - [address] [phone] Abnormal mammogram Discharge Disposition: Home or Self Care from Last 3 Months Immunizations Immunization Administration Dates Next Due Tdap Tetanus diptheria acell ular pertussis (Boostrix; Adacel) 7yo and older 11/16/2024,02/21/2007 Surgical History Surgery Date Site/Laterality Comments OTHER SURGICAL HISTORY PROCEDURE: [place] LIG/TRNSXJ FLP TUBE ABDL/VAG APPR UNI/BI BREAST [...] Sign Reading Time Taken Comments Blood Pressure 122/70 05/31/2025 12:49 PM EDT Pulse 79 05/31/2025 12:49 PM EDT Temperature 36.4 C (97.5 F) 05/31/2025 12:49 PM EDT Respiratory Rate 16 05/31/2025 12:49 PM EDT Oxygen Saturation - - Inhaled Oxygen Concentration - - Weight 89.8 kg (198 lb) 05/31/2025 12:49 PM EDT Height 170.2 cm (5' 7 ) 05/31/2025 12:49 PM EDT Body Mass Index 31.01 05/31/2025 12:49 PM EDT Plan of Treatment Upcoming Encounters Date Type Department Care Team (Late st Contact Info) Description 08/31/2025 11:30 AM EST Office Visit Adult Medicine [place] - [address] [phone] Yani Tripp MD [address] [place] [phone] 10/26/2025 8:30 AM EST Appointment Radiology Department - [address] [phone] Health Maintenance Due Date Last Done Comments Colorectal Cancer Screening: Stool Based Tests (FOBT/FIT) 09/29/2022 Social Influencers of Health Screening 09/29/2022 Falls Risk Assessment 11/16/2025 11/16/2024 Breast Cancer Screening 05/06/2027 05/06/20, 11/20/2024, 11/18/2024, Additional history exists RSV Immunization [...] Procedure Name Priority Date/Time Associated Diagnosis Comments EXTERNAL XRAY REPORT 05/13/2025 EXTERNAL XRAY REPORT 05/13/2025 MG MAMMO DIAGNOSTIC ADDL VIEWS LEFT Routine [...] Recently Relevant to Health Maintenance Results * External Xray Report (05/13/2025) Only the most recent of2 resultswithin the time period is included. Anatomical Region Laterality Modality Radiographic Romina ging us Provider [facility] IMG XR PROCEDURES Final Result * MG Mammo Diagnostic Addl Views Left [...] left breast in 6 months. MAMMO LOCATION: [facility], [address] [place] [address], [address], . -------- FINAL REPORT -------- Dictated By: Bisi Aranda Dictated Date: 05/06/2025 10:40 ET Assigned Physician: Bisi Aranda Reviewed and Electronically Signed By: Bisi Aranda Signed Date: 05/06/2025 10:43 ET Workstation ID: [id number] Transcribed By: Self Edit Transcribed Date: 05/06/2025 [...] the leftbreast in 6 months. MAMMO LOCATION: [facility], [address] [place] [address], [address], . -------- FINAL REPORT -------- Dictated By: Bisi Aranda Dictated Date: 05/06/2025 10:40 ET Assigned Physician: Bisi Aranda Reviewed and Electronically Signed By: Bisi Aranda Signed Date: 05/06/2025 10:43 ET Workstation ID: [id number] Transcribed By: Self Edit Transcribed Date: 05/06/2025 10:40 ET Yani Tripp MD [facility] BI PROCEDURES Final Result * (ABNORMAL) Lipid [...] EST 11/18/2024 8:35 AM EST Rosana Blanton NP LAB BLOOD ORDERABLES Final R esult [facility] [address] [place] [address], * DXA BONE DENSITY STUDY 1+ SITS [...] on the World Health Organization criteria, Luciana Bird should be classified as having osteoporosis. The [facility] Department of Internal Medicine recommends using National [...] on the World Health Organization criteria, Luciana Bird should beclassified as having osteoporosis. The [facility] Department of Internal Medicine recommendsusing National Osteoporosis [...] Final Result * Hepatitis C Screening (01/16/2019) [facility] Hepatitis C Screening abstracted Historical Provider HEALTH MAINTENANCE Final Result from Last 3 Months or Most Recently Relevant to Health Maintenance Insurance [employer] Care Teams Cash Teller Relationship Specialty Start Date End Date Yani Tripp MD [address] [facility] [place] [address] PCP - General 02/23/00
== END 2025-08-05 09:27 | disposition home or self-care (01) ==
PROVIDERS: PCP Internal Medicine; Visit Provider Nurse Practitioner Family
DX: M54.2 Cervicalgia (principal); M25.512 Pain in left shoulder

== ENCOUNTER → 2025-08-05 09:19 | Outpatient (BNV) | payer OTHER, SELFPAY | PROVIDERS: PCP Internal Medicine; Visit Provider Radiology Diagnostic Ultrasound | DX: M47.812 Spondylosis without myelopathy or radiculopathy, cervical region (principal); M50.323 Other cervical disc degeneration at C6-C7 level; M25.512 Pain in left shoulder | CPT/HCPCS: 72040; 73030 ==